=== PATIENT | male | born 1995 | race African-American/Black ===

== ENCOUNTER 2016-07-08 21:25 | Emergency (ER) | payer OTHER ==
[2016-07-08 21:34] VITALS: BP 117/44; PULSE 59; TEMP 97.3; BMI 17.6
[2016-07-08] MEDS ORDERED: AMOX TR/POT CLAV 875MG/125MG TABLETS (FP) PO ONE (21:35)
[2016-07-08] MEDS ORDERED: DIPHTH,PERTUSS(ACELL),TET 0.5 ML DISP.SYRIN IM ONE (21:35)
[2016-07-08] MEDS ORDERED: IBUPROFEN 600 MG TABLET (FP) PO ONE ×2 (21:43→21:54)
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
[2016-07-08] MEDS ORDERED: AMOX TR/POT CLAV 875MG/125MG TABLETS (FP) ONE (21:54)
[2016-07-09 01:26] LABS: HIV 1 & 2 AB NEGATIVE; HIV 1 AGp24 NEGATIVE
[2016-07-11 00:06] LABS: HEP B SURFACE AB Non Reactive (.)
== END 2016-07-08 22:07 | disposition home or self-care (01) ==
LOC: JERFT 21:25
PROC: 3E0234Z Introduction of Serum, Toxoid and Vaccine into Muscle, Percutaneous Approach (ICD-10-PCS; principal; 2016-07-08)
DX: S20.471A Other superficial bite of right back wall of thorax, initial encounter (principal); Y04.1XXA Assault by human bite, initial encounter; Y93.89 Activity, other specified; Y92.89 Other specified places as the place of occurrence of the external cause; Y07.59 Other non-family member, perpetrator of maltreatment and neglect
CPT/HCPCS: 36415; 86704; 86706; 86707; 86708; 87340; 87350; 87389; 90471; 90715; 99281-25

== ENCOUNTER 2017-07-06 11:16 | Emergency (ER) | payer OTHER ==
[2017-07-06 11:28] VITALS: TEMP 98.1; BMI 18.1
--- NOTE | 2017-07-06 12:37 | PDOC ---
Attending Attestation - HPI HPI: 07/06/17 14:08 The patient is a 22 year old male with a significant PMH of migraines who presents to the emergency department with intermittent headache for the past few days. The patient states the headache was of gradual onset and feels worse than his normal migraines. The patient notes he is experiencing photophobia but no phonophobia. The patient states he has not taken any meds for his headaches. The patient reports he had not been getting enough sleep at night. The patient endorses he has not been drinking caffeine. The patient is also complaining of intermittent tingling in the hands and feet. The patient reports he would like to consult a neurologist as he has not seen one in 2-3 years. The patient has a negative brain MRI in 2014. The patient denies chest pain, shortness of breath and dizziness. Denies fever, chills, nausea, vomit, diarrhea and constipation. Denies dysuria, frequency, urgency and hematuria. Allergies: NKA Past surgical history: None reported. Social history: No reported alcohol, cigarette or drug use. <Viki Guillaume - Last Filed: 07/06/17 14:13> - Resident Resident Name: Nj Orozco - ED Attending Attestation I have performed the following: I have examined & evaluated the patient, The case was reviewed & discussed with the resident, I agree w/resident's findings & plan, Exceptions are as noted - Physicial Exam PE: GENERAL: Awake, alert, and fully oriented, in no acute distress HEAD: No signs of trauma EYES: PERRLA, EOMI, sclera anicteric, conjunctiva clear ENT: Auricles normal inspection, hearing grossly normal, nares patent, oropharynx clear without exudates. Moist mucosa NECK: Normal ROM, supple, no lymphadenopathy, JVD, or masses LUNGS: Breath sounds equal, clear to auscultation bilaterally. No wheezes, and no crackles HEART: Regular rate and rhythm, normal S1 and S2, no murmurs, rubs or gallops ABDOMEN: Soft, nontender, normoactive bowel sounds. No guarding, no rebound. No masses EXTREMITIES: Normal range of motion, no edema. No clubbing or cyanosis. No cords, erythema, or tenderness NEUROLOGICAL: Cranial nerves II through XII grossly intact. Normal speech, normal gait. Motor and sensation intact. SKIN: Warm, Dry, normal turgor, no rashes or lesions noted. - Medical Decision Making PT with prior workup for migraines including imaging of the head 2 years ago. No major changes in headache pattern. Likely triggered by recent lack of sleep. Will give reglan, toradol, and decadron. He declined IV due to anxiety. He improved with medication, stable for DC with outpatient f/u with neuro. <Aracelis Rogers - Last Filed: 07/07/17 11:10>
--- NOTE | 2017-07-06 12:49 | PDOC ---
History of Present Illness - General Chief Complaint: Lightheaded Stated Complaint: HEADACHE Time Seen by Provider: 07/06/17 12:27 - History of Present Illness Initial Comments: 07/06/17 13:42 The patient is a 22 year old male with a history of anxiety and migraines who presents for evaluation of headache. The patient reports a 1-2 week history of gradually worsening headache similar to his prior migraines that has not improved prompting his presentation to the ED for evaluation. The patient states that he has not tried any medications for his headache. He states that he used to follow with a neurologist in the past, but has not recently and had a negative brain MRI in 2015. He denies any fevers, chills, vision changes, SOB , chest pain, nausea, vomiting, abdominal pain, numbness, weakness in the extremities, or changes with urination or bowel movements. He reports some tingling in his extremities that is intermittent and has been a chronic issue. Past History - Past Medical History Allergies/Adverse Reactions: Allergies Allergy/AdvReac Type Severity Reaction Status Date / Time No Known Allergies Allergy Verified 07/06/17 11:28 Home Medications: Ambulatory Orders NK [No Known Home Medication] 07/06/17 Asthma: Yes COPD: No - Surgical History Abdominal Surgery: No - Immunization History Immunization Up to Date: Yes - Suicide/Smoking/Psychosocial Hx Smoking Status: No Smoking History: Never smoked Have you smoked in the past 12 months: No Number of Cigarettes Smoked Daily: 0 Hx Alcohol Use: No Drug/Substance Use Hx: No Substance Use Type: None Review of Systems - Review of Systems Comments:: 07/06/17 13:46 Constitutional: No fevers, chills, fatigue, malaise HEENT: No Rhinorrhea, nasal congestion, visual changes Cardiovascular: No chest pain, syncope, palpitations, lightheadedness Respiratory: No Cough, SOB, Hemoptysis, Gastrointestinal: No Abdominal pain, Nausea, Vomiting, Constipation, Diarrhea, Melena Genitourinary: No Dysuria, Frequency, Urgency, Hesitancy, Hematuria, Flank pain Musculoskeletal: No Myalgia, arthralgia Skin: No rashes, itching, bruising, pallor Neurologic: Headache. Tingling. No Dizziness, Numbness, Weakness, Psychiatric: No Hallucinations. No SI or HI *Physical Exam - Vital Signs Last Vital Signs Temp Pulse Resp BP Pulse Ox 98.1 F 63 16 128/82 100 07/06/17 11:24 07/06/17 11:24 07/06/17 11:24 07/06/17 11:24 07/06/17 11:24 - Physical Exam Comments: 07/06/17 13:48 General Appearance: Nourished. No Apparent Distress HEENT: EOMI, STEPHANIE. No Pharyngeal Erythema, Tonsillar Exudate, Tonsillar Erythema Neck: No Cervical Lymphadenopathy Respiratory/Chest: Lungs Clear, Normal Breath Sounds. No Crackles, Rales, Rhonchi, Wheezing Cardiovascular: Regular Rhythm, Regular Rate. No Murmur, Gallops, Rubs Gastrointestinal/Abdominal: Normal Bowel Sounds, Soft. 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 Medical Decision Making - Medical Decision Making 07/06/17 13:49 The patient is a 22 year old male with a history of anxiety and migraines who presents for evaluation of headache. Given the patient's normal physical exam and history, it is likely his current symptoms are due to a migraine headache. The patient also notes that he has not been sleeping lately and is stressed due to school which is likely contributing to his symptoms. We will treat with reglan, ibuprofen, decadron here in the ED. We will continue to monitor and reassess. 07/06/17 15:30 The patient reports improvement in his symptoms. We are comfortable discharging the patient home at this time with neurology follow up. We discussed the plan with the patient who voiced understanding and is agreeable with the plan. *DC/Admit/Observation/Transfer Diagnosis at time of Disposition: Migraine Qualifiers: Migraine type: unspecified Status migrainosus presence: without status migrainosus Intractability: not intractable Qualified Code(s): G43.909 - Migraine, unspecified, not intractable, without status migrainosus - Discharge Dispostion Disposition: HOME Condition at time of disposition: Improved Admit: No - Referrals Referrals: Moose Reynolds MD [Primary Care Provider] - Peyman Gamez MD [Staff Physician] - - Patient Instructions Printed Discharge Instructions: DI for Migraine Additional Instructions: Please return to the ER if you experience concerning or worsening symptoms including worsening pain, weakness in your extremities, or fevers. It is likely your symptoms are due to a migraine headache. You can use tyelnol or ibuprofen at home to help manage your pain. Try to keep a journal of when you have your migraines to possible identify any triggers. It is important that you call to schedule a follow up appointment with a neurologist within 1 week to discuss further management of your symptoms and we have provided a number to call. - Post Discharge Activity
[2017-07-06] MEDS ORDERED: IBUPROFEN 600 MG TABLET (FP) PO ONE ×2 (13:25→13:45)
[2017-07-06] MEDS ORDERED: METOCLOPRAMIDE HCL 10 MG TABLET (FP) PO ONE ×2 (13:25→13:45)
[2017-07-06] MEDS ORDERED: DEXAMETHASONE 4 MG TABLET (FP) PO ONE (13:26)
[2017-07-06] MEDS ORDERED: DEXAMETHASONE SOD PHOSPHATE 10 MG/1 ML VIAL ONE (13:45)
[2017-07-06 15:23] VITALS: BP 126/80; PULSE 64
== END 2017-07-06 15:23 | disposition home or self-care (01) ==
LOC: JER 11:16
DX: G43.909 Migraine, unspecified, not intractable, without status migrainosus (principal)
CPT/HCPCS: 99282-25

== ENCOUNTER 2017-11-23 14:14 | Emergency (ER) | payer OTHER ==
[2017-11-23 14:44] VITALS: TEMP 98.4; BMI 18.8
--- NOTE | 2017-11-23 14:44 | PDOC ---
Rapid Medical Evaluation Time Seen by Provider: 11/23/17 14:36 Medical Evaluation: Allergies Allergy/AdvReac Type Severity Reaction Status Date / Time No Known Allergies Allergy Verified 11/23/17 14:36 11/23/17 14:37 I have performed a brief in-person evaluation of this patient. The patient presents with a chief complaint of: headache with sudden muscle stiffness 1hr [employer], h/o anxiety, had similar episode a month ago, denies any toxic habits. Pertinent physical exam findings:strength 5+/5, rrr, CTA, in UE, catatonic fingers, pt appears anxious I have ordered the following:labs, head CT, labs The patient will proceed to the ED for further evaluation. 11/23/17 14:44 Discharge Disposition - Diagnosis Headache Qualifiers: Headache type: unspecified Headache chronicity pattern: acute headache Intractability: not intractable Qualified Code(s): R51 - Headache - Referrals - Patient Instructions - Post Discharge Activity
[2017-11-23 15:53] LABS: HEMATOCRIT 47.1 % (35.4-49); MCH 29.3 pg (25.7-33.7); MCHC 33.9 g/dl (32.0-35.9); MEAN CELL VOLUME 86.5 fl (80-96); MEAN PLT VOLUME 7.7 fl (7.5-11.1); PLATELET COUNT 235 K/MM3 (134-434); RBC 5.45 M/mm3 (4.00-5.60); RDW 13.8 % (11.9-15.9); WHITE BLOOD COUNT 6.3 K/mm3 (4.0-10.0)
[2017-11-23 16:08] LABS: INR 1.07 (0.82-1.09); PROTHROMBIN TIME (PATIENT) 12.1 SEC (9.7-13.0)
[2017-11-23 16:21] LABS: ALBUMIN 4.6 g/dl (3.4-5.0); ANION GAP 11 (8-16); BILIRUBIN,TOTAL 1.4 mg/dL (0.2-1.0); BLOOD UREA NITROGEN 10 mg/dL (7-18); CALCIUM 9.6 mg/dL (8.5-10.1); CHLORIDE 102 mmol/L (98-107); CO2 26 mmol/L (21-32); CREATININE 1.4 mg/dL (0.7-1.3); GLUCOSE,RANDOM 105 mg/dL (74-106); SGOT/AST 18 U/L (15-37); SGPT/ALT 24 U/L (12-78); SODIUM 139 mmol/L (136-145); TOT PROT 8.4 g/dl (6.4-8.2)
[2017-11-23 16:22] LABS: ALK PHOS 112 U/L (45-117)
[2017-11-23] MEDS ORDERED: METOCLOPRAMIDE HCL INJECTION 10 MG/2 ML VIAL IVPUSH ONE (17:26)
[2017-11-23] MEDS ORDERED: ACETAMINOPHEN 1000 MG/100 ML VIAL (NON FORMULARY) IVPB ONE (17:26)
[2017-11-23] MEDS ORDERED: METOCLOPRAMIDE HCL INJECTION 10 MG/2 ML VIAL ONE (17:44)
[2017-11-23] MEDS ORDERED: ACETAMINOPHEN INJECTION 100 ML IVPB ONE (17:44)
--- NOTE | 2017-11-23 18:23 | PDOC ---
History of Present Illness - General History Source: Patient Exam Limitations: No Limitations <Diego Mclain - Last Filed: 11/23/17 18:23> - History of Present Illness Initial Comments: 11/23/17 18:26 The patient is a 22 year old male with a significant PMH of migraines and anxiety presenting with a worsening headache. The patient states he has headaches daily but does not usually take medications for it. The patient describes the headache as right sided, localized in the temporal region, throbbing in nature, 8/10 in severity, that worsens when lying flat. The patient states this headache is worse than his typical headaches and has taken aspirin last night and Tylenol this morning with no relief. The patient states this is not the worst headache of his life. The patient is also endorsing tingling on his extremities bilaterally. The patient is also reporting chills and diffuse myalgias. The patient admits to recent stressful triggers and has been more anxious than normal. The patient follows up with Dr. Gamez ( neurologist). He also has an MRI scheduled for this week. The patient denies neck stiffness,chest pain, shortness of breath, and dizziness. Denies fever, nausea, vomit, diarrhea and constipation. Denies dysuria, frequency, urgency and hematuria. Allergies: NKA Past surgical history: None reported Social history: No reported alcohol, drug, or cigarette use. PCP: Dr. Reynolds <Viki Guillaume - Last Filed: 11/23/17 18:30> - General Chief Complaint: Syncope/Near Syncope Stated Complaint: SYNCOPE Time Seen by Provider: 11/23/17 14:36 Past History - Past Medical History Asthma: Yes COPD: No - Surgical History Abdominal Surgery: No - Immunization History Immunization Up to Date: Yes - Suicide/Smoking/Psychosocial Hx Smoking Status: No Smoking History: Never smoked Have you smoked in the past 12 months: No Number of Cigarettes Smoked Daily: 0 Hx Alcohol Use: No Drug/Substance Use Hx: No Substance Use Type: None <Diego Mclain - Last Filed: 11/23/17 18:23> <Viki Guillaume - Last Filed: 11/23/17 18:30> - Past Medical History Allergies/Adverse Reactions: Allergies Allergy/AdvReac Type Severity Reaction Status Date / Time No Known Allergies Allergy Verified 11/23/17 14:36 Home Medications: Ambulatory Orders Acetaminophen [Tylenol] 650 mg PO Q4H PRN #20 tablet 11/23/17 Metoclopramide HCl [Reglan] 10 mg PO Q8H PRN #10 tablet 11/23/17 Review of Systems - Review of Systems Able to Perform ROS?: Yes Comments:: 11/23/17 18:26 ADULT ROS GENERAL/CONSTITUTIONAL: No fever or chills. No weakness. HEAD, EYES, EARS, NOSE AND THROAT: No change in vision. No ear pain or discharge. No sore throat. CARDIOVASCULAR: No chest pain or shortness of breath. RESPIRATORY: No cough, wheezing, or hemoptysis. GASTROINTESTINAL: No nausea, vomiting, diarrhea or constipation. GENITOURINARY: No dysuria, frequency, or change in urination. MUSCULOSKELETAL: No joint or muscle swelling or pain. No neck or back pain. SKIN: No rash NEUROLOGIC: (+) Headache. No vertigo, loss of consciousness, or change in strength/sensation. ENDOCRINE: No increased thirst. No abnormal weight change. HEMATOLOGIC/LYMPHATIC: No anemia, easy bleeding, or history of blood clots. ALLERGIC/IMMUNOLOGIC: No hives or skin allergy. <Viki Guillaume - Last Filed: 11/23/17 18:30> *Physical Exam - Vital Signs Last Vital Signs Temp Pulse Resp BP Pulse Ox 98.4 F 83 20 152/73 100 11/23/17 14:36 11/23/17 14:36 11/23/17 14:36 11/23/17 14:36 11/23/17 18:13 <Diego Mclain - Last Filed: 11/23/17 18:23> - Vital Signs Last Vital Signs Temp Pulse Resp BP Pulse Ox 98.4 F 83 20 152/73 100 11/23/17 14:36 11/23/17 14:36 11/23/17 14:36 11/23/17 14:36 11/23/17 18:13 - Physical Exam Comments: 11/23/17 18:30 ADULT EXAM GENERAL: Awake, alert, and fully oriented, in no acute distress HEAD: No signs of trauma EYES: PERRLA, EOMI, sclera anicteric, conjunctiva clear ENT: Auricles normal inspection, hearing grossly normal, nares patent, oropharynx clear without exudates. Moist mucosa NECK: Normal ROM, supple, no lymphadenopathy, JVD, or masses LUNGS: Breath sounds equal, clear to auscultation bilaterally. No wheezes, and no crackles HEART: Regular rate and rhythm, normal S1 and S2, no murmurs, rubs or gallops ABDOMEN: Soft, nontender, normoactive bowel sounds. No guarding, no rebound. No masses EXTREMITIES: Normal range of motion, no edema. No clubbing or cyanosis. No cords, erythema, or tenderness <Viki Guillaume - Last Filed: 11/23/17 18:30> ED Treatment Course - LABORATORY CBC & Chemistry Diagram: 11/23/17 15:32 11/23/17 15:32 - ADDITIONAL ORDERS Additional order review: Laboratory Results 11/23/17 11/23/17 15:32 15:32 PT with INR 12.10 INR 1.07 Sodium 139 Potassium 4.0 Chloride 102 Carbon Dioxide 26 Anion Gap 11 BUN 10 Creatinine 1.4 H Creat Clearance w eGFR > 60 Random Glucose 105 Calcium 9.6 Total Bilirubin 1.4 H AST 18 D ALT 24 D Alkaline Phosphatase 112 Total Protein 8.4 H Albumin 4.6 11/23/17 15:32 RBC 5.45 MCV 86.5 MCHC 33.9 RDW 13.8 MPV 7.7 - Medications Given in the ED: ED Medications Discontinued Medications Generic Name Dose Route Start Last Admin Trade Name Jimq PRN Reason Stop Dose Admin Acetaminophen 1,000 mg 11/23/17 17:26 11/23/17 17:57 Ofirmev Injection - IVPB 11/23/17 17:27 1,000 mg ONCE ONE Administration Diphenhydramine HCl 25 mg 11/23/17 17:26 11/23/17 17:57 Benadryl Injection - IVPB 11/23/17 17:27 25 mg ONCE ONE Administration Metoclopramide HCl 10 mg 11/23/17 17:26 11/23/17 17:57 Reglan Injection - IVPUSH 11/23/17 17:27 10 mg ONCE ONE Administration <Diego Mclain - Last Filed: 11/23/17 18:23> - LABORATORY CBC & Chemistry Diagram: 11/23/17 15:32 11/23/17 15:32 - ADDITIONAL ORDERS Additional order review: Laboratory Results 07/09/18 07/09/18 15:32 15:32 PT with INR 12.10 INR 1.07 Sodium 139 Potassium 4.0 Chloride 102 Carbon Dioxide 26 Anion Gap 11 BUN 10 Creatinine 1.4 H Creat Clearance w eGFR > 60 Random Glucose 105 Calcium 9.6 Total Bilirubin 1.4 H AST 18 D ALT 24 D Alkaline Phosphatase 112 Total Protein 8.4 H Albumin 4.6 11/23/17 15:32 RBC 5.45 MCV 86.5 MCHC 33.9 RDW 13.8 MPV 7.7 - Medications Given in the ED: ED Medications Discontinued Medications Generic Name Dose Route Start Last Admin Trade Name Truman PRN Reason Stop Dose Admin Acetaminophen 1,000 mg 11/23/17 17:26 11/23/17 17:57 Ofirmev Injection - IVPB 11/23/17 17:27 1,000 mg ONCE ONE Administration Diphenhydramine HCl 25 mg 11/23/17 17:26 11/23/17 17:57 Benadryl Injection - IVPB 11/23/17 17:27 25 mg ONCE ONE Administration Metoclopramide HCl 10 mg 11/23/17 17:26 11/23/17 17:57 Reglan Injection - IVPUSH 11/23/17 17:27 10 mg ONCE ONE Administration <Viki Guillaume - Last Filed: 11/23/17 18:30> Medical Decision Making - Medical Decision Making 11/23/17 18:17 A portion of this note was documented by scribe services under my direction. I have reviewed the details of the note, within reason, and agree with the documentation with the following case summary and management plan written by me. Patient treated in the ED. Nursing notes are reviewed and incorporated into the medical decision-making. Vital signs reviewed. Peripheral IV access obtained by the nurse, laboratory studies are drawn and sent, reviewed and interpreted by myself. Vital Signs Temp Pulse Resp BP Pulse Ox 98.4 F 83 20 152/73 100 11/23/17 14:36 11/23/17 14:36 11/23/17 14:36 11/23/17 14:36 11/23/17 18:13 22-year-old male patient with history of anxiety and migraines presents with headache. The patient Reports for several months he's been having the symptoms of unilateral right or occasionally left-sided throbbing headache. States that the headaches are worsened with laying down. Denies associated photophobia phonophobia. The headache is intermittent but has been crying for months. He states has been associated with occasional body stiffness area and reports that occasionally he feels "chills "but no fevers. Denies coughing, vomiting, diarrhea. Patient is unsure if his anxiety is a component of this. He does report that he feels very anxious. He also states that having an IV makes him anxious. The patient has been given follow-up with neurologist prior the past but has deferred because he felt nervous. The patient did finally obtain an appointment with neurologist and has an MRI set up in 6 days. Patient suspect that this may be his migraine. I also agree that the patient likely has components of anxiety here as well as likely migraines. Patient's been given medications with significant improvement his headache. Blood work does demonstrate a creatinine of 1.4 which is incidental. I advised the patient to drink plenty of fluids and also spoke to his mother. The patient should have this blood test repeated given these kidney function tests. They both verbalize understanding agrees with plan. The agree to follow-up as an outpatient. I discussed the physical exam findings, ancillary test results and final diagnoses with the patient. I answered all of the patient's questions. The patient was satisfied with the care received and felt comfortable with the discharge plan and treatment plan. The patient will call their primary care physician within 24 hours to arrange follow-up and will return to the Emergency Department with any new, persistant or worsening symptoms. <Diego Mclain - Last Filed: 11/23/17 18:23> *DC/Admit/Observation/Transfer - Discharge Dispostion Decision to Admit order: No <Diego Mclain - Last Filed: 11/23/17 18:23> - Attestations Scribe Attestion: 11/23/17 18:30 Documentation prepared by Viki Guillaume, acting as medical and scientific illustrator for Diego Mclain MD. <Viki Guillaume - Last Filed: 11/23/17 18:30> Diagnosis at time of Disposition: Headache Qualifiers: Headache type: unspecified Headache chronicity pattern: acute headache Intractability: not intractable Qualified Code(s): R51 - Headache - Discharge Dispostion Disposition: HOME Condition at time of disposition: Improved - Prescriptions Prescriptions: Acetaminophen [Tylenol] 650 mg PO Q4H PRN #20 tablet PRN Reason: Pain Metoclopramide HCl [Reglan] 10 mg PO Q8H PRN #10 tablet PRN Reason: Headache - Referrals Referrals: Juanita Reynolds MD [Primary Care Provider] - Peyman Gamez MD [Staff Physician] - - Patient Instructions Printed Discharge Instructions: DI for Headache Additional Instructions: Please take 650 mg tylenol every 4 hours as needed for headache. For additional relief, take a tablet of reglan every 8 hours as needed. It is very very important that you follow up with your MRI and neurologist. Please call to schedule an appointment. The MRI will also help further explain the headache. Also, your kidney function test (creatinine) is 1.4. This is slightly elevated. Please drink plenty of fluids and follow up with your doctor. You will need to have this test repeated. Please avoid motrin, ibuprofen, aleve, as these medications may worsen your kidneys. - Post Discharge Activity
[2017-11-23 18:58] VITALS: BP 140/81; PULSE 79
== END 2017-11-23 18:58 | disposition home or self-care (01) ==
LOC: JER 14:14
PROC: 3E033NZ Introduction of Analgesics, Hypnotics, Sedatives into Peripheral Vein, Percutaneous Approach (ICD-10-PCS; principal; 2017-11-23)
PROC: 3E033GC Introduction of Other Therapeutic Substance into Peripheral Vein, Percutaneous Approach (ICD-10-PCS; 2017-11-23)
PROC: 3E033GC Introduction of Other Therapeutic Substance into Peripheral Vein, Percutaneous Approach (ICD-10-PCS; 2017-11-23)
DX: R51 Headache (principal); F41.9 Anxiety disorder, unspecified; G43.909 Migraine, unspecified, not intractable, without status migrainosus
CPT/HCPCS: 36415; 70450-TC; 80053; 85027; 85610; 96374; 96375; 99283-25; J0131

== ENCOUNTER 2018-12-19 03:11 | Emergency (ER) | payer OTHER | END 2018-12-19 05:22 | disposition home or self-care (01) | LOC: JER 03:11 ==